=== PATIENT | male | born 1950 | race Caucasian/White ===

== ENCOUNTER → 2018-05-01 | Outpatient (CLI) | payer MEDICARE ==
[~2018-05-01] MED LIST: B12 SUBLING; BYSTOLIC10 MG PO; CARTIA XT PO; CLONAZEPAM 1 MG1 M1 PO; COQ-10100 MG PO; COUMADIN6 MG PO; IBUPROFEN PO; LISINOPRIL20 MG PO; MAGNESIUM250 M1 PO; OMEPRAZOLE 20 M20 MG PO; PERCOCET 5-3251 EACH PO; POTASSIUM; SIMVASTATIN20 MG PO; TIKOSYN.5 PO; VITAMIN D-32000 UNIT PO; WARFARIN PO
== END ==
LOC: M.RAD 11:57
DX: M51.36 Other intervertebral disc degeneration, lumbar region (principal); G47.33 Obstructive sleep apnea (adult) (pediatric); M54.5 Low back pain; G89.29 Other chronic pain; I10 Essential (primary) hypertension